=== PATIENT | male | born 1980 | race Hispanic/Latino ===

== ENCOUNTER 2018-03-25 16:16 | Emergency (ER) | payer OTHER ==
[2018-03-25 16:36] LABS: APPEARANCE,URINE Clear (CLEAR); BILIRUBIN,URINE Small (NEGATIVE); COLOR,URINE Dark Yellow (YELLOW); GLUCOSE, URINE (UA) Negative (NEGATIVE); KETONES,URINE Trace mg/dL (NEGATIVE); LEUKOCYTE ESTERASE ,URINE Negative (NEGATIVE); NITRATE,URINE Negative (NEGATIVE); OCCULT BLOOD,URINE Negative (NEGATIVE); PH,URINE 5.5 (5.0-8.0); PROTEIN,URINE Trace (NEGATIVE)
[2018-03-25 16:46] LABS: BACTERIA,URINE Rare /HPF (None Seen); MUCUS,URINE Many LPF (None Seen); RBC,URINE None Seen /HPF (0-1); SQUAMOUS EPITHELIAL CELL,UR 0-2 /HPF (0-2); WBC,URINE 0-1 /HPF (0-1)
[2018-03-25 17:37] LABS: CREATININE 0.8 mg/dL (0.5-1.5)
[2018-03-25 17:42] LABS: ALBUMIN 3.8 g/dL (3.5-5.0); BILIRUBIN,TOTAL 0.6 mg/dL (0.2-1.0); TOTAL PROTEIN, SERUM 7.7 g/dL (6.0-8.3)
[2018-03-25 18:49] LABS: AMYLASE 62 U/L (25-115); LIPASE 174 U/L (114-286)
== END 2018-03-25 19:06 | disposition home or self-care (01) ==
LOC: EDH 16:16
DX: R10.11 Right upper quadrant pain (principal); Z72.0 Tobacco use
CPT/HCPCS: 36415; 76705; 80053; 81001; 82150; 83690